=== PATIENT | male | born 2000 | race African-American/Black ===

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

== ENCOUNTER 2021-06-02 12:37 | Inpatient (IN) ==
[2021-06-02 16:05] LABS: Urine Appearance Clear; Urine Bilirubin Negative (Negative); Urine Blood Negative (Negative); Urine Color Yellow; Urine Glucose Negative (Negative); Urine Ketones 2+ (Negative); Urine Nitrite Negative (Negative); Urine Protein 1+(30 mg/dL) (Negative); Urine Specific Gravity 1.035 (1.002-1.030); Urine Urobilinogen Negative (Negative)
[2021-06-02 16:21] LABS: Urine Bacteria Absent (Absent); Urine Red Blood Cell Trace(0-2/hpf) (Absent); Urine Squamous Epithelial Cell Present (Absent); Urine White Blood Cell Trace(0-5/hpf) (Absent)
[2021-06-02 16:24] LABS: Urine Benzodiazepine Screen None Detected (None Detect); Urine Cannabinoids Screen Presumptive Positive (None Detect); Urine Opiates Screen None Detected (None Detect)
[2021-06-02 17:18] LABS: ABS Monocytes 0.3 10^3/ul (0-0.8); ABS Neutrophils 2.8 10^3/ul (1.5-7.7); Eosinophil % 0.3 %; Hematocrit 45 % (42-52); Hemoglobin 15.2 g/dL (14.0-18.0); Lymphocyte % 23.6 %; Mean Corpuscular HGB Conc 34 g/dL (31-36); Mean Corpuscular Hemoglobin 29 pg (27-31); Mean Corpuscular Volume 85 fL (80-94); Mean Platelet Volume 9.7 fL (7.4-10.4); Nucleated Red Blood Cells % 0.1; Platelet Count 183 10^3/uL (150-450); Red Blood Count 5.25 10^6 /uL (4.18-5.48); Red Cell Distribution Width 14 % (10-15); White Blood Count 4.2 10^3/uL (3.5-10.8)
[2021-06-02 17:30] LABS: Troponin I 0.01 ng/mL (<0.03)
[2021-06-02 17:34] LABS: ALT 9 U/L (7-52); AST 13 U/L (13-39); Albumin 4.6 g/dL (3.2-5.2); Albumin/Globulin Ratio 1.5 (1-3); Alkaline Phosphatase 51 U/L (35-149); Anion Gap 8 mmol/L (2-11); Blood Urea Nitrogen 16 mg/dL (6-24); CO2 Carbon Dioxide 27 mmol/L (22-32); Calcium 9.7 mg/dL (8.6-10.3); Chloride 103 mmol/L (101-111); Glucose 93 mg/dL (70-100); Sodium 138 mmol/L (135-145); Total Protein 7.6 g/dL (6.4-8.9)
[2021-06-02 17:47] LABS: Alcohol, S < 13 mg/dL (<13)
[2021-06-02] MEDS ORDERED: Gadoteridol (CONTRAST) 279.3 MG/ML 10 ML IV ONE (18:10)
[2021-06-02 18:35] LABS: C Reactive Protein 1.18 mg/L (<8.01)
[2021-06-02] MEDS ORDERED: Lorazepam PYXIS KEY PRN ×2 (18:47→19:11)
[2021-06-02] MEDS ORDERED: LORazepam 2 mg VIAL 1 ml IV PUSH ONE ×2 (18:47→19:11)
[2021-06-02 19:39] LABS: Erythrocyte Sed Rate 3 mm/Hr (0-14)
[2021-06-02] MEDS ORDERED: NS 0.9% 1000 ml BAG 1,000 ML IV ONE (21:55)
[2021-06-02 22:38] LABS: Rapid COVID-19 Molecular Undetected (Undetected)
[2021-06-03] MEDS ORDERED: Ketamine HCL 50 mg/ml 10 ml VIAL (500 MG) IV ONE (00:35)
[2021-06-03] MEDS: Ketamine HCL 50 mg/ml 10 ml VIAL (500 MG) IV ONE ×2 (02:24→05:57)
[2021-06-03] MEDS ORDERED: Propofol 10 MG/ML 20 ML BTL ONE ×2 (02:24→02:26)
[2021-06-03] MEDS ORDERED: Propofol 10 MG/ML 20 ML BTL IV PUSH ONE (02:27)
[2021-06-03] MEDS ORDERED: methylPREDNISolone SOD SUCC 1000 MG ML VIAL ONE (03:00)
[2021-06-03] MEDS ORDERED: methylPREDNISolone SOD SUCC 1000 MG ML VIAL IVPB ONE (03:00)
[2021-06-03 03:30] LABS: Body Fluid Source Cerebral Spinal
[2021-06-03] MEDS ORDERED: methylPREDNISolone SOD SUCC 1,000 MG in NS 0.9% 250 ml 250 ML IVPB ONE (04:00)
[2021-06-03 04:09] LABS: Rheumatoid Factor < 10 IU/mL (<15)
[2021-06-03 04:14] LABS: Activated Partial Thrombo Time 31.6 seconds (26.0-38.0); INR 1.42 (0.86-1.15)
[2021-06-03 04:38] LABS: Vitamin D Total 25(OH) 13.7 ng/mL (20-50)
[2021-06-03 04:57] LABS: Body Fluid Appearance Clear; Body Fluid Color Colorless
[2021-06-03 05:00] LABS: Body Fluid WBC 5 /mcL
[2021-06-03 05:22] LABS: CSF Tube # 4
[2021-06-03 05:50] LABS: CSF Glucose 68 mg/dL (40-70)
[2021-06-03 06:34] LABS: Body Fluid Mono 16 %; Body Fluid Total Cells Counted 200
[2021-06-03] MEDS: Cholecalciferol (VIT D3) 1,000 unit TAB PO SCH (11:02)
[2021-06-03 11:36] LABS: HIV 4th Generation Nonreactive (Nonreactive)
[2021-06-03] MEDS ORDERED: LORazepam 2 mg VIAL 1 ml IV PUSH PRN (13:06)
[2021-06-03] MEDS ORDERED: Lorazepam PYXIS KEY PRN (13:06)
[2021-06-03] MEDS ORDERED: Iohexol 300 (CONTRAST) 10 ML SDV IV ONE (13:10)
[2021-06-03] MEDS: D5W 1/2 NS 1000 ml BAG 1,000 ML IV SCH (19:44)
[2021-06-04] MEDS ORDERED: methylPREDNISolone SOD SUCC 1,000 MG in NS 0.9% 250 ml 250 ML IVPB ONE (04:00)
[2021-06-04 06:00] LABS: ABS Lymphocytes 1.3 10^3/ul (1.0-4.8); ABS Monocytes 0.7 10^3/ul (0-0.8); ABS Neutrophils 8.1 10^3/ul (1.5-7.7); Hematocrit 42 % (42-52); Hemoglobin 14.3 g/dL (14.0-18.0); Lymphocyte % 12.8 %; Mean Corpuscular HGB Conc 34 g/dL (31-36); Mean Corpuscular Hemoglobin 29 pg (27-31); Mean Corpuscular Volume 85 fL (80-94); Mean Platelet Volume 9.9 fL (7.4-10.4); Nucleated Red Blood Cells % 0.1; Platelet Count 194 10^3/uL (150-450); Red Blood Count 4.94 10^6 /uL (4.18-5.48); Red Cell Distribution Width 14 % (10-15); White Blood Count 10.1 10^3/uL (3.5-10.8)
[2021-06-04 06:23] LABS: Calcium 9.2 mg/dL (8.6-10.3); Potassium 3.7 mmol/L (3.5-5.0)
[2021-06-04] MEDS: D5W 1/2 NS 1000 ml BAG 1,000 ML IV SCH ×2 (07:38→15:25)
[2021-06-04] MEDS: Cholecalciferol (VIT D3) 1,000 unit TAB PO SCH (07:52)
[2021-06-04 14:48] LABS: CSF VDRL Negative (Negative)
[2021-06-04 15:32] VITALS: BP 131/60
[2021-06-04 18:04] LABS: Phospholipid Ab IgG < 9.4 GPL; Phospholipid Ab IgM, S < 9.4 MPL
[2021-06-04] MEDS ORDERED: Lorazepam PYXIS KEY PRN (19:37)
[2021-06-04] MEDS ORDERED: LORazepam 2 mg VIAL 1 ml IV PUSH ONE (19:37)
[2021-06-05 14:51] LABS: B. garinii/B. afzellii PCR Negative (Negative); Lyme Disease Source CSF
[2021-06-05 15:12] LABS: CSF Oligoclonal Bands 4 bands; Oligoclonal Proteins Interpret 4 bands (<2); Serum Oligoclonal Bands 0 bands
[2021-06-05 22:33] LABS: Albumin, CSF 19.5 mg/dL (<=27.0); Albumin, S 4800 mg/dL; IgG Index, CSF 0.74 (<=0.85); IgG, CSF 4.5 mg/dL (<=8.1); IgG, S 1480 mg/dL (767 - 1590); IgG/Albumin, CSF 0.23 (<=0.21); IgG/Albumin, S 0.31 (<=0.40)
[2021-06-07 20:03] LABS: NMO/AQP4 IgG Negative (Negative)
[2021-06-08 18:07] LABS: AGNA-1, CSF Negative titer (<1:2); Amphiphysin Ab, CSF Negative titer (<1:2); CRMP-5-IgG, CSF Negative titer (<1:2); PCA-1, CSF Negative titer (<1:2); PCA-2, CSF Negative titer (<1:2); PCA-Tr, CSF Negative titer (<1:2)
== END 2021-06-04 20:34 | disposition short-term general hospital (02) | DRG 72 ==
LOC: ED 12:37 → EDHOLD 06-03 04:11 → SUATTDRO 06-03 04:11 → EDHOLD 06-03 15:37 → MEDTELE 06-03 16:23
PROVIDERS: ADMIT Internal Medicine; ATTEND Internal Medicine